=== PATIENT | female | born 1955 | race Caucasian/White ===

== ENCOUNTER 2019-05-29 17:23 | Inpatient (IN) | payer OTHER ==
[~2019-05-29] VITALS: Ht 162.6 cm; Wt 97.2 kg
[~2019-05-29 17:23] MED LIST: DUEXIS 800-26.1 EACH PO; HYDCHL25 PO; Inderal40 MG PO; Pravastatin Sod80 MG PO; TRAZ50 PO; ZYRTEC10 M2 PO
[2019-05-29 17:56] LABS: BASOPHILS ABSOLUTE AUTO 0.06 K/mm3 (0.00-0.23); BASOPHILS PERCENT AUTO 0 % (0-2); EOSINOPHILS ABSOLUTE AUTO 0.07 K/mm3 (0.00-0.68); EOSINOPHILS PERCENT AUTO 1 % (0-6); Hemoglobin 15.4 g/dL (11.5-16.0); IMMATURE GRAN ABSOLUTE AUTO 0.05 K/mm3 (0.00-0.10); IMMATURE GRAN PERCENT AUTO 0 % (0-1); LYMPHOCYTES ABSOLUTE AUTO 3.04 K/mm3 (0.84-5.20); LYMPHOCYTES PERCENT AUTO 20 % (21-46); MONOCYTES ABSOLUTE AUTO 0.91 K/mm3 (0.16-1.47); MONOCYTES PERCENT AUTO 6 % (4-13); Mean Corpuscular HGB 32.2 pg (26.0-34.0); Mean Corpuscular HGB Conc 34.2 g/dL (31.5-36.5); Mean Corpuscular Volume 94 fL (80-100); Mean Platelet Volume 9.4 fL (9.1-12.4); NEUTROPHILS ABSOLUTE AUTO 10.92 K/mm3 (1.96-9.15); NEUTROPHILS PERCENT AUTO 73 % (41-73); Platelet Count 353 K/mm3 (150-400); RDW Coefficient Variation 15.1 % (11.7-14.2); RDW Standard Deviation 51.3 fL (35.1-46.3); Red Blood Cell Count 4.78 M/mm3 (3.80-5.20); White Blood Cell Count 15.05 K/mm3 (4.00-11.30)
[2019-05-29 18:24] LABS: Albumin, Blood 3.9 g/dL (3.4-5.0); Albumin/Globulin Ratio 0.8 (0.8-1.8); Bilirubin, Total 0.9 mg/dL (0.1-1.0); Bun/Creatinine Ratio 16.5 (12.0-20.0); Calcium, Blood 9.5 mg/dL (8.5-10.1); Creatinine, Blood 1.03 mg/dL (0.40-1.00); Globulin, Blood 4.6 g/dL (2.2-4.0); Potassium, Blood 4.9 mmol/L (3.5-5.5); Total Protein, Blood 8.5 g/dL (6.4-8.2); Troponin I 0.49 ng/mL (0.000-0.040)
[2019-05-29] MEDS ORDERED: METFORMIN HCL1000 M1 PO (19:23)
[2019-05-29] MEDS ORDERED: LISI5 PO (19:23)
[2019-05-29 20:22] LABS: International Normalized Ratio 0.96; Prothrombin Time Results 10.2 Sec (9.7-11.5)
[2019-05-29] MEDS ORDERED: SERT100 PO (20:29)
--- NOTE | 2019-05-29 22:00 | NUR ---
PATIENT ARRIVED VIA GURNEY TO THE FLOOR, TRANSFERRED TO BED INDPENDENTLY. ONCE SITTING UP SHE REPORTED LIGHTHEADNESS, THAT RESOLVED AFTER SHE SAT FOR A MINUTE. HEPARIN DRIP INFUSING, VERIFIED WITH ORDER. STATES SHE FEELS CHEST PRESSURE MID STERNUM THAT IS NOT RELEIVED WITH POSITION CHANGES. DENIES RADIATING TO ARM OR JAW. VS WNL. SETTLED INTO THE ROOM, ASSESSMENT COMPLETED ALONG WITH ADMISSION, SEE CHART. CALL LIGHT GIVEN, WILL CONTINUE TO MONITOR AND PROVIDE CARE.
[2019-05-30 01:29] LABS: CHOL/HDL RATIO 7.9; Cholesterol 349 mg/dL (50-200); HDL Cholesterol 44 mg/dL (>39); LDL/HDL RATIO 5.9; Low Density Lipoprotein Chol 259 mg/dL (0-110); Triglycerides 228 mg/dL (30-160); Very Low Density Lipoprot Chol 45 mg/dL (6-32)
--- NOTE | 2019-05-30 01:49 | NUR ---
RECEIVED CRITICAL TROPONIN LEVEL OF 1.57. CALLED DR. PRYOR AND INFORMED OF LEVEL. NO CHANGES WITH THE PATIENT SHE IS SLEEPING AT THIS TIME. REPEAT TROPONIN AT 7AM ORDERED.
--- NOTE | 2019-05-30 03:34 | NUR ---
0237 PATIENT CALLED TO USE THE BATHROOM. ARRIVED TO ROOM, UNPLUGGED IV AND ASSISTED HER TO THE SIDE OF THE BED. PATIENT THEN REPORTED SHE FELT REALLY HOT ALL OF THE SUDDEN THEN FELL BACKWARDS, CATCHING HER FROM HITTING HER HEAD ON SIDE RAIL, EYES ROLLED BACK IN THE HEAD, WAS UNRESPONSIVE. ATTEMPTED TO [employer]ARM PRODUCTS SHIPPER, THE PATIENT AWAKENED AND IMMEDIATLY STARTED TO VOMIT, FLUSHED, PALE AND DIAPHORETIC. CALLED CHARGE NURSE FOR FARM PRODU[employer] SHIPPER TO BE CALLED. FARM PRODU[employer] SHIPPER SHOWED UP PATIENT STILL VOMITING AT THAT TIME. GAVE REPORT TO LORE RODEO RIDER, AND THE TEAM. INFORMED OF ELEVATION IN TROPONIN TO 1.[address] PRYOR ORDERED ZOFRAN 4MG, GIVEN AT 0300. VS SET WITH BP 67/46 PULSE 60 SATS 87% THEN 5 LITERS OF O2 APPLIED SATS 98%. 500NS BOLUS ORDERED, STARTED AT 0320. SECOND SET OF VITALS 98/70 HR 91. COREG DC PER DR. PRYOR. PATIENT TRANSFERRED TO ICU 7.
--- NOTE | 2019-05-30 04:30 | NUR ---
CALL TO FAMILY ATTEMPTED CALL TO PT'S DAUGHTER, RACHNA, BUT NO ANSWER. MESSAGE LEFT TO CALL ICU. SISTER, DEMARCUS, NOTIFIED AT THIS TIME AND UPDATE GIVEN.
--- NOTE | 2019-05-30 04:30 | NUR ---
TRANSFER TO ICU PT ARRIVED TO ICU @ 0320, PT ALERT AND ORIENTED, PT DIAPHORETIC. DR PRYOR TO ROOM, ORDERED TO GIVE FULL 1L BOLUS OF NS. MONITOR SHOWS SINUS RHYTHM WITH RATE 80'S-90'S, MAPS IN THE 50'S. PT MAINTAINING O2 SATURATIONS ABOVE 90% ON 4L PER NC. PT REPORTS DULL CP 10/17. DR ESCOBEDO TO ROOM, EXPLAINED ANGIOGRAM PROCEDURE, BP NOT IMPROVING WITH 1L BOLUS, LEVOPHED ORDERED. PT COMPLAINS OF NEED TO URINATE, OWENS ORDERED AND INSERTED, NO URINE OUTPUT AT THIS TIME. PT TO PRECAST WORKER @ 1236.
--- NOTE | 2019-05-30 07:00 | NUR ---
SHIFT SUMMARY/RETURN FROM ASSISTANT TEACHING PROFESSOR PT RETURNED FROM ASSISTANT TEACHING PROFESSOR @ 0556, R RADIAL ACCESS WITH 14CC AIR IN CUFF @ 0535. SITE NON TENDER, CIRCULATION CHECKED AND SENSATION IN TACT X4 Q15M POST RETURN TO UNIT. BLADDER SCAN SHOWED 650ml, NO URINE OUTPUT IN OWENS, REMOVED OWENS PLACED PT ON BED WADE AND PT VOIDED 600ml URINE. PT DENIES CP AND SOB. LEVO @ 5, PER DR ESCOBEDO, PT NOT TO RECEIVE ANYMORE FLUID BOLUS AND TO MAINTAIN MAPS>60 WITH LEVOPHED TITRATION.
--- NOTE | 2019-05-30 07:06 | NUR ---
BEGINNING OF SHIFT Assumed care at 0700. Bedside report received from Edna RN and Ann RN. Pt on 4 LPM NC. Reports she does not wear O2 at home. SpO2 96%. O2 titrated down to 2 LPM NC. Levophed infusing at 5 mcg/min into 20 ga IV in left forearm. IV access WNL. Pt educated to notify staff if IV becomes tender. Pt verbalizes understanding. Sinus rhythm with first degree block per monitor, rate 85. Bed in lowest position. Call light in reach. Pt denies need at this time.
--- NOTE | 2019-05-30 07:19 | NUR ---
TITRATION SpO2 95%. Titrated to room air. Afterwards, SpO2 91%. Levophed titrated to 4 mcg/min, MAP consistently 75 or greater for last hour.
--- NOTE | 2019-05-30 07:39 | NUR ---
CALL PLACED TO DR ESCOBEDO This RN called to clarify heparin order. Provider stated heparin should be discontinued.
--- NOTE | 2019-05-30 07:55 | NUR ---
DR SHELLEY IN ROOM Plan of care discussed with provider. Discussed lisinopril ordered by hospitalist. Lisinopril to be held today. Levophed decreased to 3 mcg/min. Breakfast tray at bedside. Pt and family educated on activity restrictions. Verbalized understanding. 2 mL air removed from TR site. Color, sensation, pulses, capillary refill equal BUE.
--- NOTE | 2019-05-30 08:48 | NUR ---
UPDATE Pt currently on 2 mcg/min of levophed. Call placed to Dr Ward at 0820 to clarify orders for lisinopril and plavix. Meds to be held today, but continued tomorrow.
--- NOTE | 2019-05-30 09:00 | NUR ---
IV ACCESS Approx 1 cm of catheter exposed on RAC IV access. Covered with dressing. Line patent. Not being used at this time. Plan to remove access when pt is no longer ICU status. Right anterior wrist IV also had 1 cm of catheter exposed, covered with dressing. Line patent. Removed as it was not being used. Levophed infusing into LFA IV. Site WNL.
--- NOTE | 2019-05-30 10:02 | NUR ---
CALL PLACED TO DR CABELLO - ATORVASTATIN CLARIFIED Pt states she takes atorvastatin at night. Pt received dose last night. This RN asked Dr Cabello if this medication can be given at bedtime. Provider stated this medication may be administered at bedtime. Provider also ordered dose increased from 40 mg to 80 mg.
--- NOTE | 2019-05-30 10:39 | NUR ---
DR ESCOBEDO IN TO SEE PT Pt currently on 1 mcg/min of levophed. Discussed potential for status change to PCU this afternoon. Discussed TR band. Provider ordered heparin 5,000 SQ for DVT prophylaxis to start this afternoon.
--- NOTE | 2019-05-30 11:05 | NUR ---
CALL PLACED TO DR ESCOBEDO Discussed echocardiogram findings. No changes in plan of care.
--- NOTE | 2019-05-30 12:50 | NUR ---
TR BAND UPDATE TR band removed. Site covered with tegaderm. Small amount of bruising noted to site. No drainage noted to site. Trinity-sized hematoma to site. Color, sensation, distal pulses, capillary refill equal BUE.
--- NOTE | 2019-05-30 16:16 | NUR ---
CALL PLACED TO DR SHELLEY Discussed blood sugars and pt's home metformin. Requested order for low sliding scale. Provider stated plan to review chart.
--- NOTE | 2019-05-30 17:12 | NUR ---
SUMMARY Pt is A&O x 4. Pt has not gotten OOB this shift. Levophed has been off since 1130. SBP ranging from 80s-110s. MAP consistently greater than 60. Pt initially on 4 LPM NC. Titrated to room air and has remained on room air since. Pt no longer has chest pain. SR with first degree HB. Right transradial access, covered with tegaderm. Small amount of bruising to site. Trinity-sized hematoma palpable. Color, sensation, pulses, capillary refill equal BUE. Wrist immobilization board in place. Pt compliant with activity restrictions. Pt tolerating cardiac diet well. Will continue to closely monitor until care handoff and bedside report with oncoming RN.
--- NOTE | 2019-05-30 18:09 | NUR ---
DR ESCOBEDO IN TO SEE PATIENT Discussed blood pressures. Discussed hematoma to right radial site. Provider states pt is okay for PCU status.
--- NOTE | 2019-05-30 20:29 | NUR ---
RADIAL SITE: APPROX 1915 ASSESSED RIGHT RADIAL SITE. HEMATOMA HAS DECREASED DOWN TO PEA SIZE FROM ORIGINAL QUARTER SIZE PER AM RN, PALPATION CONFIRMED PEA SIZE, MILD ECCHYMOSIS NOTED AT INSERTION SITE. CLEAR OCCLUSIVE DRESSING INTACT, NO SIGN OF BLEEDING NOTED, ALL SENSATIONS INTACT WITH GOOD CIRCULATION AND OXYGENATION. PATIENT DENIES PAIN AT SITE. MONITORING CLOSELY, ALL OTHER VSS, REPORT AND ASSESSMENT OF SURGICAL SITE COMPLETED WITH AM RN KAT.
--- NOTE | 2019-05-31 03:33 | NUR ---
ORTHOSTATICS: APPROX 0310 PATIENT REQUESTED TO USE THE RESTROOM, ORTHOSTATICS PERFORMED BEFORE PATIENT WALKED TO TOILET. LYIN/51, HR 91 SITTIN/69, HR 92 STANDIN/49, HR 119 PATIENT DENIES CHEST PAIN/PRESSURE OR LIGHTHEADED/DIZZY SENSATIONS PATIENT ABLE TO AMBULATE TO TOILET WITH SBA, GAIT AND BALANCE STEADY, NO SOB.
[2019-05-31 03:57] LABS: Anion Gap 4 mmol/L (6-16); Blood Urea Nitrogen 14 mg/dL (8-24); CO2, Blood 29 mmol/L (21-32); Calcium, Blood 8.9 mg/dL (8.5-10.1); Chloride, Blood 107 mmol/L (98-108); Creatinine, Blood 0.83 mg/dL (0.40-1.00); Glomerular Filtration Rate >60 (60-); Glucose, Blood 118 mg/dL (70-99); Potassium, Blood 3.9 mmol/L (3.5-5.5); Sodium, Blood 140 mmol/L (136-145)
--- NOTE | 2019-05-31 05:08 | NUR ---
SHIFT SUMMARY: PATIENT VSS, ORTHOSTATICS COMPLETED (SEE PREVIOUS NOTE), COMPLIANT WITH CARE AND USING CALL LIGHT APPROPRIATLY. BED LOW AND LOCKED AND PATIENT MONITORED CAREFULLY.
--- NOTE | 2019-05-31 07:15 | NUR ---
BEGINNING OF SHIFT Assumed care at 0700. Bedside report received from Dominga CHRISTIAN. SR per monitor. Does not report chest pain. Pt on room air. VSS. Pt states interest in sitting up in chair for breakfast.
--- NOTE | 2019-05-31 07:55 | NUR ---
AM ORTHOSTATICS LYING: HR 73, BP 153/66 SITTING: HR 74, BP 150/67 STANDING: HR 100, BP 124/66
--- NOTE | 2019-05-31 19:32 | NUR ---
SUMMARY Pt A&O x 4. OOB several times this shift to sit in chair and use toilet. Pt tolerated activity well. Pt has not had any chest pain this shift. Remains on room air. Entresto and metoprolol added this shift. Pt verbalizes desire to go home on Monday. Bedside report given to Edna CHRISTIAN and Ann CHRISTIAN.
--- NOTE | 2019-05-31 19:45 | NUR ---
ASSUMPTION OF CARE ASSUMED CARE OF PT @ 1900. PT AWAKE, A&O x4, DENIES CP/SOB/NAUSEA/DIZZINESS. O2 SATURATIONS MAINTAINED ABOVE 90% ON RA, LUNG SOUNDS CLEAR AND DIMINISHED IN THE BASES. MONITOR SHOWS NSR RATE 80, BP ELEVATED AT 142/62, SCHEDULED BP MEDICATIONS ON SEP. BOWEL TONES NORMAL, PT DENIES ANY GI/ ISSUES. R RADIAL SITE COVERED WITH OPSITE, MINIMAL BRUISING NOTED AND 1CM NODULE NOTED AROUND INSERTION SITE, PT STS MINIMAL TENDERNESS WITH PRESSURE, DISTAL PULSE PRESENT, DISTAL CIRCULATION AND SENSATION INTACT.
--- NOTE | 2019-06-01 06:21 | NUR ---
SHIFT SUMMARY PT REMAINED STABLE AND SLEPT T/O SHIFT, PT AROUSES TO VERBAL STIMULI, USES CALL LIGHT APPROPRIATELY, SBA WHEN UP IN ROOM, PT DENIED CP/SOB/DIZZINESS T/O SHIFT. VSS, PT ON RA, MONITOR SHOWS NSR. R RADIAL SITE REMAINS SAME WITH SMALL 1CM NODULE AT INSERTION SITE, MINIMAL BRUSING AND TENDERNESS, OPSITE IN PLACE C/D/I.
--- NOTE | 2019-06-01 07:20 | NUR ---
ASSUMED CARE REPORT FROM GINO HERNANDEZ. PATIENT DENIES PAIN/CHEST PAIN. SOME TENDERNESS AT RADIAL SITE.
--- NOTE | 2019-06-01 07:47 | NUR ---
MD VISIT DR. SHELLEY IN. PLAN TO DISCHARGE TODAY AFTER SERVICE ORDER DISPATCHER SEES HER.
--- NOTE | 2019-06-01 09:57 | NUR ---
MD VISIT DR. LOPEZ (CARDIOLOGY) IN.
[2019-06-01] MEDS ORDERED: ATOR80 PO (12:31)
[2019-06-01] MEDS ORDERED: Aspirin EC81 MG PO (12:32)
[2019-06-01] MEDS ORDERED: CLOP75 PO (12:32)
[2019-06-01] MEDS ORDERED: METO25ER PO (12:33)
[2019-06-01] MEDS ORDERED: ENTRESTO 24 MG1 EACH PO (12:35)
--- NOTE | 2019-06-01 12:38 | NUR ---
RX CALLED TO [facility] FOR MONDAY ONLY MEDS. COMPLETE RX FAXED TO [facility].
--- NOTE | 2019-06-01 13:08 | NUR ---
DISCHARGE INSTRUCTIONS GIVEN AND ACKNOWLEDGED. PIV D/C'D WNL. TAKEN OUT IN W/C BY DISHA POLO
== END 2019-06-01 13:09 | disposition home or self-care (01) | DRG 286 ==
LOC: ER 17:23 → ICUE 21:49 → MEDS 21:49 → ICUE 05-30 03:28
PROVIDERS: Emergency Medicine; Internal Medicine; Physician Assistant; ADMIT Hospitalist
PROC: B2111ZZ Fluoroscopy of Multiple Coronary Arteries using Low Osmolar Contrast (ICD-10-PCS; principal; 2019-05-30)
PROC: 4A023N7 Measurement of Cardiac Sampling and Pressure, Left Heart, Percutaneous Approach (ICD-10-PCS; 2019-05-30)
PROC: B240ZZ3 Ultrasonography of Single Coronary Artery, Intravascular (ICD-10-PCS; 2019-05-30)
PROC: B2151ZZ Fluoroscopy of Left Heart using Low Osmolar Contrast (ICD-10-PCS; 2019-05-30)
DX: I51.81 Takotsubo syndrome (principal); R57.0 Cardiogenic shock; E11.9 Type 2 diabetes mellitus without complications; I10 Essential (primary) hypertension; E66.9 Obesity, unspecified; E78.5 Hyperlipidemia, unspecified; Z87.891 Personal history of nicotine dependence; Z79.84 Long term (current) use of oral hypoglycemic drugs; I95.1 Orthostatic hypotension; I25.10 Atherosclerotic heart disease of native coronary artery without angina pectoris; Z68.38 Body mass index [BMI] 38.0-38.9, adult
CPT/HCPCS: 36415; 51702; 71046; 80048; 80053; 80061; 82947; 83036; 83880; 84484; 85025; 85347; 85610; 85730; 90686; 92978; 93005; 93010; 93306; 93458; 94760; 96365; 99152; 99153; 99285-25; A9270; C1753; C1769; C1887; C1894; J0461; J1644; J2250; J2405; J3010; J7030; J7060; Q9967

== ENCOUNTER 2019-09-18 18:22 | Inpatient (IN) | payer OTHER ==
[~2019-09-18] VITALS: Ht 162.6 cm; Wt 95.2 kg
[~2019-09-18 18:22] MED LIST changes: +ATOR80 PO; +Aspirin EC81 MG PO; +CLOP75 PO; +ENTRESTO 24 MG1 EACH PO; +LISI5 PO; +METFORMIN HCL1000 M1 PO; +METO25ER PO; +SERT100 PO
[2019-09-18 19:14] LABS: BASOPHILS ABSOLUTE AUTO 0.04 K/mm3 (0.00-0.23); BASOPHILS PERCENT AUTO 0 % (0-2); EOSINOPHILS ABSOLUTE AUTO 0.12 K/mm3 (0.00-0.68); EOSINOPHILS PERCENT AUTO 1 % (0-6); Hematocrit 42.8 % (33.0-51.0); Hemoglobin 14.4 g/dL (11.5-16.0); IMMATURE GRAN ABSOLUTE AUTO 0.02 K/mm3 (0.00-0.10); IMMATURE GRAN PERCENT AUTO 0 % (0-1); LYMPHOCYTES PERCENT AUTO 28 % (21-46); MONOCYTES ABSOLUTE AUTO 0.75 K/mm3 (0.16-1.47); MONOCYTES PERCENT AUTO 7 % (4-13); Mean Corpuscular HGB 31.7 pg (26.0-34.0); Mean Corpuscular HGB Conc 33.6 g/dL (31.5-36.5); Mean Corpuscular Volume 94 fL (80-100); Mean Platelet Volume 9.5 fL (9.1-12.4); NEUTROPHILS ABSOLUTE AUTO 7.12 K/mm3 (1.96-9.15); NEUTROPHILS PERCENT AUTO 64 % (41-73); Platelet Count 264 K/mm3 (150-400); RDW Coefficient Variation 14.9 % (11.7-14.2); RDW Standard Deviation 50.4 fL (35.1-46.3); Red Blood Cell Count 4.54 M/mm3 (3.80-5.20); White Blood Cell Count 11.15 K/mm3 (4.00-11.30)
[2019-09-18 19:37] LABS: Alanine Aminotransfer (ALT/SGP 23 U/L (12-78); Albumin, Blood 3.9 g/dL (3.4-5.0); Alk Phos 92 U/L (50-136); Anion Gap 7 mmol/L (6-16); Aspartate Aminotrans (AST/SGOT 21 U/L (12-37); Bilirubin, Total 0.9 mg/dL (0.1-1.0); Blood Urea Nitrogen 12 mg/dL (8-24); Bun/Creatinine Ratio 14.5 (12.0-20.0); CO2, Blood 24 mmol/L (21-32); Calcium, Blood 9.3 mg/dL (8.5-10.1); Chloride, Blood 108 mmol/L (98-108); Creatinine, Blood 0.83 mg/dL (0.40-1.00); Glomerular Filtration Rate >60 (60-); Glucose, Blood 172 mg/dL (70-99); Potassium, Blood 3.7 mmol/L (3.5-5.5); Sodium, Blood 139 mmol/L (136-145); Total Protein, Blood 7.9 g/dL (6.4-8.2); Troponin I 0.016 ng/mL (0.000-0.040)
[2019-09-18] MEDS ORDERED: PRINIVIL10 MG PO (21:55)
[2019-09-18 21:57] LABS: International Normalized Ratio 1.04; Prothrombin Time Results 11.1 Sec (9.7-11.5)
--- NOTE | 2019-09-19 01:14 | NUR ---
ADMIT NOTE PATIENT ADMITED FROM THE ER AND SETTLED IN AND ORIENTED TO THE ROOM, UNIT, AND CALL LIGHT. PATIENT PLEASENT AND COOPERATIVE UPON ADMIT. PATIENT ABLE TO TRANSFER SELF INDEPENDENTLY FROM THE GURNEY TO THE BED. PATIENT STATES THAT SHE DOES NOT HAVE CHEST PAIN THAT SHE CAN RATE ON A NUMBER SCALE, "ITS MORE OF A PRESSURE, LIKE SOMEONE'S SITTING ON MY CHEST." PATIENT DENIED THE NEED FOR ANY PAIN MEDICATION. HEPARIN GTT RUNNING PER ORDERS. PATIENT CURRENTLY RESTING IN BED AND TYRING TO GET SOME SLEEP. WILL CONTINUE TO MONITOR.
--- NOTE | 2019-09-19 07:35 | NUR ---
SHIFT SUMMARY PATIENT PLEASENT AND COOPERATIVE THROUGHOUT THE REST OF THE NIGHT. PATIENT APPEARED TO NAP ON AND OFF LAST NIGHT. HEPARIN GTT RUNNING PER ORDERS. PATIENT CONTINUES TO DENY ANY CHEST PAIN. BEDSIDE REPORT GIVEN TO ONCOMING RN.
--- NOTE | 2019-09-19 11:05 | NUR ---
ECHOCARDIOGRAM COMPLETED
--- NOTE | 2019-09-19 16:01 | NUR ---
Spiritual care visit conducted. Patient informs me that she is headed in for an angiogram soon. She then explains about her medical history, her family and her cecilia. We talk about her 8 yrs in the [place] and about the stress that she must be carrying. I listen empathically, normalize patient's experience, explore orthodoxy beliefs and provide anxiety containment and pre-procedure prayer. Patient responds well and shows signs of reduced stress. I will continue to remain available to patient and family.
--- NOTE | 2019-09-19 18:28 | NUR ---
SHIFT SUMMARY... NO ACUTE NEGATIVE CHANGES NOTED THIS SHIFT. PT HAS BEEN HYPOTENSIVE WITH SBP AT 93. PT IS NOT SYMPTOMATIC WITH THESE BPS. PT WAS TAKEN TO THE BRANCH SALES AND SERVICE REPRESENTATIVE AND RETURNED APROX 1740, NO STENTS WERE PLACED AND ALL ARTERIES WERE CLEAR PER REPORT. RIGHT RADIAL SITE HAS TR BAND, PT C/O OF SLIGHT PAIN TO THE RIGHT HAND, PULSES ARE GOOD, GOOD PLETH IS NOTED ON THE PULSE OX, HOWEVER HANDS AND FINGERS ON THE RIGHT ARE COOL TO TOUCH. PT CURRENTLY DENIES ANY CHEST PAIN/PRESSUREL N/V OR SOB. ALL OTHER VS STABLE AT THIS TIME. PT'S DAUGHTER IS AT THE BEDSIDE. CALL LIGHT IN REACH WILL CONTINUE TO MONITOR UNTIL REPORT IS GIVEN TO ONCOMING RN.
--- NOTE | 2019-09-19 20:42 | NUR ---
UPDATE NOTIFIED DR UBSH THAT PATIENT IS NOT CURRENTLY ON HER HEPARIN GTT BUT IT IS STILL ORDERED. DR BUSH STATED THAT THE HEPARIN GTT COULD BE DISCONTINUED.
--- NOTE | 2019-09-19 21:17 | NUR ---
UPDATE ALL AIR REMOVED FROM TR BAND AT THIS TIME. NO SIGNS OF BLEEDING, BRUISING, OR HEMATOMA FORMATION NOTED. DENIES ANY N/T IN FINGERS. WILL CONTINUE TO MONITOR.
--- NOTE | 2019-09-19 23:16 | NUR ---
UPDATE TR BAND REMOVED AT THIS TIME. NO SIGNS OF BLEEDING, BRUISING, OR HEMATOMA FORMATION NOTED. SITE SOFT TO TOUCH. ARMBOARD IN PLACE. WILL CONTINUE TO MONITOR.
--- NOTE | 2019-09-20 07:28 | NUR ---
SHIFT SUMMARY PATIENT PLEASENT AND COOPERATIVE THROUGHOUT THE NIGHT. PATIENT APPEARED TO SLEEP WELL. ANGIO ACCESS SITE TO RIGHT WRIST HAS A VERY SMALL SLIGHT LUMP AT INSERTION SITE BUT NO FURTHER CHANGES NOTED TO SITE. ARMBOARD IN PLACE. VITAL SIGNS CHARTED. BEDSIDE REPORT GIVEN TO ONCOMING RN.
--- NOTE | 2019-09-20 08:35 | NUR ---
AM NOTE... ASSUMED CARE OF PT APROX 0700, PT IS A&Ox4 AND IND IN THE ROOM. PT IS S/P ANGIO YESTERDAY WITH NO INTERVENTIONS. PT'S RIGHT WRIST SITE IS C/D/I NO SWELLING OR HEMATOMA NOTED. PT'S VS STABLE. PT DENIES CHEST PAIN/PRESSURE N/V OR SOB. WILL CONTINUE TO MONITOR
--- NOTE | 2019-09-20 12:01 | NUR ---
PT D/C... PT D/C HOME. DISCHARGE INSTRUCTIONS AND EDUCATION PROVIDED TO THE PT. PT'S VS STAABLE. PT DENIES CHEST PAIN/PRESSURE N/V OR SOB. ALL OF PT'S BELONGINGS PACKED AND SENT WITH THE PT. NO NEW MEDICATIONS ORDERED FOR THE PT. IV REMOVED WNL FROM THE PT'S LEFT FOREARM.
== END 2019-09-20 11:44 | disposition home or self-care (01) | DRG 281 ==
LOC: ER 18:22 → PCU 18:23
PROVIDERS: Emergency Medicine; Physician Assistant; ADMIT Hospitalist
PROC: 4A023N7 Measurement of Cardiac Sampling and Pressure, Left Heart, Percutaneous Approach (ICD-10-PCS; principal; 2019-09-19)
PROC: B2111ZZ Fluoroscopy of Multiple Coronary Arteries using Low Osmolar Contrast (ICD-10-PCS; 2019-09-19)
DX: I21.4 Non-ST elevation (NSTEMI) myocardial infarction (principal); I50.22 Chronic systolic (congestive) heart failure; I51.81 Takotsubo syndrome; I11.0 Hypertensive heart disease with heart failure; E11.9 Type 2 diabetes mellitus without complications; Z79.4 Long term (current) use of insulin; F41.8 Other specified anxiety disorders; E66.9 Obesity, unspecified
CPT/HCPCS: 36415; 71045; 80053; 82947; 84484; 85025; 85610; 85730; 93005; 93010; 93308; 93321; 93454; 96365; 96375; 96376; 99152; 99285-25; A9270-GY; C1769; C1894; J1170; J1644; J2250; J2405; J3010; J7030; Q9967

== ENCOUNTER 2024-06-10 17:13 | Inpatient (IN) | payer OTHER ==
[~2024-06-10] VITALS: Ht 162.6 cm; Wt 90.7 kg
[~2024-06-10 17:13] MED LIST changes: +PANT20 PO; +PRINIVIL10 MG PO; +Prinivil10 MG PO
[2024-06-10 17:55] LABS: BASOPHILS ABSOLUTE AUTO 0.07 K/mm3 (0.00-0.23); BASOPHILS PERCENT AUTO 1 % (0-2); EOSINOPHILS ABSOLUTE AUTO 0.13 K/mm3 (0.00-0.68); EOSINOPHILS PERCENT AUTO 1 % (0-6); Hematocrit 43.7 % (33.0-51.0); Hemoglobin 15.2 g/dL (11.5-16.0); IMMATURE GRAN ABSOLUTE AUTO 0.05 K/mm3 (0.00-0.10); IMMATURE GRAN PERCENT AUTO 0 % (0-1); LYMPHOCYTES ABSOLUTE AUTO 4.07 K/mm3 (0.84-5.20); LYMPHOCYTES PERCENT AUTO 31 % (21-46); MONOCYTES ABSOLUTE AUTO 0.88 K/mm3 (0.16-1.47); MONOCYTES PERCENT AUTO 7 % (4-13); Mean Corpuscular HGB 31.9 pg (26.0-34.0); Mean Corpuscular HGB Conc 34.8 g/dL (31.5-36.5); Mean Corpuscular Volume 92 fL (80-100); Mean Platelet Volume 9.7 fL (9.1-12.4); NEUTROPHILS ABSOLUTE AUTO 7.92 K/mm3 (1.96-9.15); NEUTROPHILS PERCENT AUTO 60 % (41-73); Platelet Count 287 K/mm3 (150-400); RDW Coefficient Variation 15.5 % (11.7-14.2); RDW Standard Deviation 50.9 fL (35.1-46.3); Red Blood Cell Count 4.76 M/mm3 (3.80-5.20); White Blood Cell Count 13.12 K/mm3 (4.00-11.30)
[2024-06-10 18:17] LABS: Albumin, Blood 3.9 g/dL (3.4-5.0); Bilirubin, Total 1.1 mg/dL (0.1-1.0); Bun/Creatinine Ratio 18.2 (12.0-20.0); Calcium, Blood 9.9 mg/dL (8.5-10.1); Creatinine, Blood 0.77 mg/dL (0.40-1.00); Globulin, Blood 4.1 g/dL (2.2-4.0); Potassium, Blood 4.3 mmol/L (3.5-5.5)
[2024-06-10] MEDS ORDERED: TUMS500 MG PO (21:11)
[2024-06-10] MEDS ORDERED: Vitamin D1000 UNI1 PO (21:12)
[2024-06-10] MEDS ORDERED: SITA100T2 PO (21:13)
[2024-06-10] MEDS ORDERED: FLU VACC TS2024-25(6MOS UP)/PF 45 MCG/0.5 ML SYRINGE IM ONE (22:05)
[2024-06-10] MEDS ORDERED: Ondansetron HCl 2 MG / ML 2ML Vial IV PRN (22:05)
[2024-06-10] MEDS ORDERED: Calcium Carbonate 500 MG Tab Chew PO PRN (23:55)
[2024-06-10] MEDS ORDERED: Labetalol HCL 5 MG/ML 4ML Injection (Single Dose) IV PRN (23:55)
[2024-06-11] MEDS ORDERED: LIDO700A20 TOP (00:27)
[2024-06-11 00:39] VITALS: BP 184/82
[2024-06-11] MEDS ORDERED: Loratadine 10 MG Tab PO PRN (00:55)
--- NOTE | 2024-06-11 05:01 | NUR ---
NEW ADMIT PT ARRIVED TO ROOM APROX 0020; A/OX4. PLEASANT AND COOPERATIVE. PT ADMIT FOR S/S OF CVA. PT WENT TO [place] [facility] BEFORE [facility] ED. CT DONE AT [place]. 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 PT PRESENTING WITH LEFT SIDE WEAKNESS. CONCERN FOR CVA/TIA--PT TO HAVE MRI AND ECHO DONE TOMORROW. PT LIVES IN A SINGLE STORY HOME WITH DAUGHTER. PT DENIES SAFETY CONCERNS OR FOOD INSECURITIES. NEURO CHECK--LEFT SIDE WEAKNESS, LEFT SIDE PROFESSOR OF ART STRENGHT DEFICIT, LEFT HAND NUMBNESS AND TINGLING, LEFT SIDE MOUTH NUMBNESS AND TINGLING. PT STATES SHE HAS NOT FALLEN DOWN IN THE LAST THREE MONTHS BUT HAS HAD MANY EPISODES OF UNSTEADYNESS/WEAKNESS WITH NEAR FALLS OR FALLING INTO FURNITURE. PT ON TELE--NORMAL SINUS AT 66. PT DENIES CHEST PAIN/PRESSURE. PT ORIENTED TO ROOM AND CALL LIGHT. PT ABLE TO MAKE NEEDS KNOWN. EDUCATED PT ON IGNTION/SMOKING POLICY--NONE PRESENT. EDUCATED ON FALL RISK PREVENTION. EDUCATED PT ON NEED FOR Q4 NEURO CHECKS AND TO ADVISE STAFF OF ANY CHANGES--WEAKNESS, N&T, VISION CHANGES, HEADACHE, NAUSEA, ETC.
[2024-06-11 05:52] VITALS: BP 160/66
[2024-06-11 06:09] LABS: BASOPHILS ABSOLUTE AUTO 0.05 K/mm3 (0.00-0.23); BASOPHILS PERCENT AUTO 0 % (0-2); EOSINOPHILS ABSOLUTE AUTO 0.16 K/mm3 (0.00-0.68); EOSINOPHILS PERCENT AUTO 1 % (0-6); Hematocrit 42.4 % (33.0-51.0); Hemoglobin 14.6 g/dL (11.5-16.0); IMMATURE GRAN ABSOLUTE AUTO 0.04 K/mm3 (0.00-0.10); IMMATURE GRAN PERCENT AUTO 0 % (0-1); LYMPHOCYTES ABSOLUTE AUTO 4.33 K/mm3 (0.84-5.20); LYMPHOCYTES PERCENT AUTO 32 % (21-46); MONOCYTES PERCENT AUTO 7 % (4-13); Mean Corpuscular HGB 31.8 pg (26.0-34.0); Mean Corpuscular HGB Conc 34.4 g/dL (31.5-36.5); Mean Corpuscular Volume 92 fL (80-100); Mean Platelet Volume 9.7 fL (9.1-12.4); NEUTROPHILS ABSOLUTE AUTO 8.11 K/mm3 (1.96-9.15); NEUTROPHILS PERCENT AUTO 59 % (41-73); Platelet Count 262 K/mm3 (150-400); RDW Coefficient Variation 15.3 % (11.7-14.2); RDW Standard Deviation 50.9 fL (35.1-46.3); Red Blood Cell Count 4.59 M/mm3 (3.80-5.20); White Blood Cell Count 13.69 K/mm3 (4.00-11.30)
[2024-06-11 06:41] LABS: Alanine Aminotransfer (ALT/SGP 46 U/L (12-78); Albumin, Blood 3.7 g/dL (3.4-5.0); Alk Phos 92 U/L (50-136); Anion Gap 10 mmol/L (3-11); Aspartate Aminotrans (AST/SGOT 41 U/L (12-37); Bilirubin, Total 0.9 mg/dL (0.1-1.0); Blood Urea Nitrogen 17 mg/dL (8-24); Bun/Creatinine Ratio 21.7 (12.0-20.0); CHOL/HDL RATIO 5.4; CO2, Blood 27 mmol/L (21-32); Calcium, Blood 9.2 mg/dL (8.5-10.1); Chloride, Blood 108 mmol/L (98-108); Cholesterol 228 mg/dL (50-200); Creatinine, Blood 0.78 mg/dL (0.40-1.00); Globulin, Blood 3.6 g/dL (2.2-4.0); Glomerular Filtration Rate 83 (60-); Glucose, Blood 216 mg/dL (70-99); HDL Cholesterol 42 mg/dL (>39); LDL/HDL RATIO 3.2; Low Density Lipoprotein Chol 133 mg/dL (0-110); Magnesium, Blood 1.7 mg/dL (1.6-2.4); Potassium, Blood 3.9 mmol/L (3.5-5.5); Sodium, Blood 141 mmol/L (136-145); Total Protein, Blood 7.3 g/dL (6.4-8.2); Triglycerides 264 mg/dL (30-160); Very Low Density Lipoprot Chol 52 mg/dL (6-32)
[2024-06-11 07:18] VITALS: BP 140/69
[2024-06-11] MEDS ORDERED: Insulin Human Lispro 100 Units/ML 3ML Syringe SC SCH (07:30)
[2024-06-11] MEDS ORDERED: Aspirin 81 MG Chew PO SCH (09:00)
[2024-06-11] MEDS ORDERED: Atorvastatin 40 MG Tab PO SCH (09:00)
[2024-06-11 15:18] VITALS: BP 144/69
--- NOTE | 2024-06-11 17:10 | NUR ---
SHIFT SUMMARY PT AWAKE AT START OF SHIFT. NO C/O. PT ADMITTED FOR CVA. PT REPORTING SYMPTOMS RESOLVING. SM AMT OF N/T IN L FACE/LIP AREA AND L HAND FINGERS. PT ABLE TO WORK WITH PT/OT TODAY. PT ALSO ALBE TO WALK INTO BTM NEEDED WITH SBA. PT DECLINED TO USE FWW; THERAPY AGREED. MRI AND ECHO DONE THIS AFTERNOON. DR ARGUETA HERE TO SEE PT A COUPLE OF TIMES, EXPLAINING ALL TESTS, PROCEDURES AND PLAN OF CARE. QUESTIONS ANSWERED. PT ENCOURAGED TO MONITOR DIABETES A STROKE RISK; PT VERBALIZED UNDERSTANDING. HgA1C AT 9. MULTIPLE FAMILY AND VISITORS IN AND OUT TODAY. 2 OUT OF TOWN DAUGHTERS CALLED FOR UPDATES. PT TO D/C TO HOME TOMORROW AFTER WORKING WITH THERAPY. PT AGREEABLE TO PLAN. CALL LT IN REACH. RESTING QUEITLY WATCHING TV.
[2024-06-11] MEDS ORDERED: Sertraline HCl 100 MG Tab PO SCH (18:00)
[2024-06-11] MEDS ORDERED: Clopidogrel Bisulfate 75 MG Tab PO SCH (18:00)
[2024-06-11] MEDS ORDERED: Cholecalciferol 1000 Unit Tablet (=25MCG) PO SCH (18:00)
[2024-06-11 19:48] VITALS: BP 162/82
[2024-06-12 02:49] VITALS: BP 144/85
--- NOTE | 2024-06-12 03:54 | NUR ---
SHIFT SUMMARY PT ALERT ORIENTED X 4 CALLS APPROPRIATELY. HER DX IS A CVA. MOST OF HER S/S HAVE RESOLVED EXCEPT THAT SHE REMAINS WITH SLIGHT NUMBNESS WITH TINGLING TO HER LT SIDE OF FACE, LIP AREA AND LT FINGERS. AMBULATES TO THE BATHROOM WITH SBA. HAS BEEN STABLE ON HER FEET. HAS BEEN SLEEPING MOST OF THIS SHIFT. NO C/O PAIN NOTED. SHES DUE TO BE DISCHARGED TO HOME TODAY AFTER WORKING WITH THERAPY. FS DONE AC AND HS WAS 206 NO COVERAGE NEEDED. VSS ON RA SATTING AT 95%. SHE DID HAVE SINUS TACH AT 0230 WITH A RATE OF 110 OTHERWISW SHE WAS IN NSR AT A RATE OF 98. REMAINS ON TELEMETRY ORDERED SLEEPING AT THIS TIME WITH CALL LIGHT IN REACH
[2024-06-12 07:20] VITALS: BP 139/80
--- NOTE | 2024-06-12 08:36 | NUR ---
RN rounded with Dr. Keith, plan is for pt to participate in PT today, and depending on outcome of therapy possible D/C home today.
[2024-06-12] MEDS ORDERED: ASPI81CH PO (12:56)
[2024-06-12 14:44] VITALS: BP 148/95
--- NOTE | 2024-06-12 15:04 | NUR ---
14:45: late entry: THIS RN CALLED DR. ARGUETA TO REPORT THAT PT IS HAVING INCREASE IN HEART RATE - SHE BECOMES TACHYCARDIC WITH STANDING, HER HEART RATE JUMPING TO 132 AND THEN SLOWLY LOWERING TO 110-118. PT DENIES CHEST PAIN. REPORTS TEMPORARY DIZZINESS UPON STANDING WHICH RESOLVES WHEN SITTING. PT TAKES METORPOLOL AND LISINOPRIL AT HOME, WHICH SHE HAS NOT RECEIVED DURING HER HOSPITAL STAY. PT IS EDUCATED TO RESUME HER METOPROLOL AND OTHER HOME MEDS WHEN SHE RETURNS HOME. DR. ARGUETA HAS NO FURTHER ORDERS.
--- NOTE | 2024-06-12 15:13 | NUR ---
LATE ENTRY: 13:30 THIS RN PROVIDED DISCHARGE EDUCATION TO PT, INCLUDING TO RESUME ALL HOME MEDICATIONS AND TO F/U WITH HER PCP. PT HAS NO FURTHER QUESTIONS AT THIS TIME. 15:00: PT WAS ESCORTED TO CARE OF PRIVATE VEHICLE, DRIVEN BY HER SON IN LAW. PT WAS PROPELLED IN WHEELCHAIR POWERED BY FINAL RAIL CUTTER. ALL PERSONAL BELONGINGS RETURNED. TELE REMOVED AND IV REMOVED. PT TOLERATED PROCEDURE WELL.
== END 2024-06-12 14:58 | disposition home or self-care (01) | DRG 65 ==
LOC: ER 17:13 → ERHOLD 17:14 → MEDS 17:14 → ENPENDDIS 06-12 11:14 → MEDS 06-12 14:58
PROVIDERS: Emergency Medicine; ADMIT Student in an Organized Health Care Education/Training Program
DX: I63.9 Cerebral infarction, unspecified (principal); I51.81 Takotsubo syndrome; I10 Essential (primary) hypertension; E78.5 Hyperlipidemia, unspecified; R29.701 NIHSS score 1; I25.10 Atherosclerotic heart disease of native coronary artery without angina pectoris; E11.42 Type 2 diabetes mellitus with diabetic polyneuropathy; K21.9 Gastro-esophageal reflux disease without esophagitis; G83.24 Monoplegia of upper limb affecting left nondominant side; Z98.51 Tubal ligation status; Z98.890 Other specified postprocedural states; Z87.891 Personal history of nicotine dependence; Z88.5 Allergy status to narcotic agent; Z88.8 Allergy status to other drugs, medicaments and biological substances; Z79.02 Long term (current) use of antithrombotics/antiplatelets; Z79.899 Other long term (current) drug therapy; Z79.82 Long term (current) use of aspirin; I25.2 Old myocardial infarction
CPT/HCPCS: 36415; 70551; 80053; 80061; 82947; 83036; 83735; 85025; 92610; 93005; 93010; 93306; 93880; 97110; 97116; 97162; 97165; 97530; 99285-25; A9270; G0378

== ENCOUNTER 2024-06-16 04:15 | Emergency (ER) | payer OTHER ==
[~2024-06-16] VITALS: Ht 162.6 cm; Wt 90.7 kg
[~2024-06-16 04:15] MED LIST changes: +ASPI81CH PO; +LIDO700A20 TOP; +SITA100T2 PO; +TUMS500 MG PO; +Vitamin D1000 UNI1 PO
[2024-06-16] MEDS ORDERED: DiphenhydrAMINE HCl 50 MG/ML 1ML Vial IV ONE (04:25)
[2024-06-16] MEDS ORDERED: Prochlorperazine Edisylate 10 mg Vial IV ONE (04:25)
[2024-06-16 04:35] LABS: BASOPHILS ABSOLUTE AUTO 0.07 K/mm3 (0.00-0.23); BASOPHILS PERCENT AUTO 1 % (0-2); EOSINOPHILS ABSOLUTE AUTO 0.14 K/mm3 (0.00-0.68); EOSINOPHILS PERCENT AUTO 1 % (0-6); Hematocrit 42.9 % (33.0-51.0); Hemoglobin 14.8 g/dL (11.5-16.0); IMMATURE GRAN ABSOLUTE AUTO 0.04 K/mm3 (0.00-0.10); IMMATURE GRAN PERCENT AUTO 0 % (0-1); LYMPHOCYTES ABSOLUTE AUTO 4.13 K/mm3 (0.84-5.20); LYMPHOCYTES PERCENT AUTO 32 % (21-46); MONOCYTES ABSOLUTE AUTO 0.92 K/mm3 (0.16-1.47); MONOCYTES PERCENT AUTO 7 % (4-13); Mean Corpuscular HGB 31.9 pg (26.0-34.0); Mean Corpuscular HGB Conc 34.5 g/dL (31.5-36.5); Mean Corpuscular Volume 93 fL (80-100); Mean Platelet Volume 9.7 fL (9.1-12.4); NEUTROPHILS ABSOLUTE AUTO 7.57 K/mm3 (1.96-9.15); NEUTROPHILS PERCENT AUTO 59 % (41-73); Platelet Count 266 K/mm3 (150-400); RDW Coefficient Variation 15.3 % (11.7-14.2); RDW Standard Deviation 50.8 fL (35.1-46.3); Red Blood Cell Count 4.64 M/mm3 (3.80-5.20); White Blood Cell Count 12.87 K/mm3 (4.00-11.30)
[2024-06-16 04:54] LABS: Albumin, Blood 3.9 g/dL (3.4-5.0); Bun/Creatinine Ratio 18.7 (12.0-20.0); Calcium, Blood 9.7 mg/dL (8.5-10.1); Creatinine, Blood 0.8 mg/dL (0.40-1.00); Globulin, Blood 3.8 g/dL (2.2-4.0); Potassium, Blood 4.2 mmol/L (3.5-5.5); Total Protein, Blood 7.7 g/dL (6.4-8.2)
[2024-06-16 05:45] VITALS: BP 140/55
[2024-06-16] MEDS ORDERED: Acetaminophen 500 MG Tab PO ONE (05:45)
[2024-06-16] MEDS ORDERED: NS 1,000 ML IV SCH (05:50)
[2024-06-16] MEDS ORDERED: ACET500 PO (05:55)
== END 2024-06-16 06:45 | disposition home or self-care (01) ==
LOC: ER 04:15
PROVIDERS: Emergency Medicine
DX: R51.9 Headache, unspecified (principal); R20.2 Paresthesia of skin; R91.1 Solitary pulmonary nodule; Z87.891 Personal history of nicotine dependence; E11.9 Type 2 diabetes mellitus without complications; I10 Essential (primary) hypertension; E78.5 Hyperlipidemia, unspecified; Z79.82 Long term (current) use of aspirin; Z79.02 Long term (current) use of antithrombotics/antiplatelets; Z79.899 Other long term (current) drug therapy; Z88.5 Allergy status to narcotic agent; Z88.8 Allergy status to other drugs, medicaments and biological substances
CPT/HCPCS: 70450; 70496; 70498; 80053; 85025; 93005; 93010; 96361; 96374-59; 96375-59; 99284-25; A9270; J0780; J1200; J7030; Q9967